=== PATIENT | male | born 1995 | race Caucasian/White ===

== ENCOUNTER → 2016-12-06 | Outpatient (CLI) | payer OTHER ==
[~2016-12-06] MED LIST: ASPI81TA28 PO; METO50TA17 PO; TMB100 PO
--- NOTE | 2016-12-07 20:03 | EXERCISE STRESS TEST ---
TIME: 19:40 ORDERING PHYSICIAN: Dr. Aaron Fu. PROCEDURE: 1. Exercise stress ECG, per standard [facility] protocol INDICATIONS: 1. Atrial fibrillation. 2. Palpitations. PROCEDURAL NOTES: The procedure was performed on home doses of metoprolol and flecainide. CONSENT: Informed written consent was obtained. PROCEDURAL DETAILS: Baseline ECG demonstrated sinus bradycardia at 59 beats per minute. Right bundle branch block. The patient exercised as per standard [facility] protocol and exercised into stage V, completing a total of 12 minutes and 59 seconds of the standard [facility] protocol, representing 15.2 mets. The maximum heart rate was 137 beats per minute representing 69% of maximum predicted heart rate. The resting blood pressure was 117/71 mmHg. The peak blood pressure was 188/70 mmHg. The study was terminated due to fatigue. No chest pain reported. Exercise ECG demonstrated no significant ST changes. There was no arrhythmia. IMPRESSION: 1. Nondiagnostic exercise electrocardiogram for ischemia as target heart rate was not attained. 2. No arrhythmia. 3. No chest pain. 4. Appropriate blood pressure response to exercise. 5. Excellent exercise tolerance achieving 15.2 mets.
== END | disposition home or self-care (01) ==
LOC: C.CPL 10:41
PROVIDERS: ATTEND Internal Medicine Clinical Cardiac Electrophysiology
DX: R00.2 Palpitations (principal); I48.0 Paroxysmal atrial fibrillation